=== PATIENT | male | born 1985 | race African-American/Black ===

== ENCOUNTER 2021-02-09 01:15 | Emergency (ER) | payer OTHER ==
[~2021-02-09] VITALS: Ht 188 cm; Wt 132.4 kg
[2021-02-09 01:22] VITALS: BP 204/109
== END 2021-02-09 03:53 | disposition home or self-care (01) ==
LOC: ER 01:17
DX: R07.89 Other chest pain (principal); I10 Essential (primary) hypertension; Z88.8 Allergy status to other drugs, medicaments and biological substances
CPT/HCPCS: 93005

== ENCOUNTER 2023-05-19 20:20 | Emergency (ER) | payer OTHER ==
[~2023-05-19] VITALS: Ht 188 cm; Wt 129.0 kg
[2023-05-19 20:20] VITALS: BP 174/125; RESP 20; O2SAT 100
[2023-05-19] MEDS ORDERED: LISINOPRIL 20 MG TAB PO ONE (22:45)
[2023-05-19 23:24] VITALS: PULSE 96
[2023-05-19] MEDS ORDERED: LISI20TA56 PO (23:37)
== END 2023-05-20 03:21 | disposition left against medical advice (07) ==
LOC: ER 20:20
DX: I10 Essential (primary) hypertension (principal); F41.9 Anxiety disorder, unspecified; Z88.8 Allergy status to other drugs, medicaments and biological substances
CPT/HCPCS: 93005

== ENCOUNTER 2024-08-11 13:19 | Inpatient (IN) | payer MEDICAID, OTHER ==
[~2024-08-11] VITALS: Ht 188 cm; Wt 115.0 kg
[~2024-08-11 13:19] MED LIST: IBU600T PO; LISI20TA56 PO
[2024-08-11] MEDS: ASPirin 81 mg TAB PO ONE (13:45)
--- NOTE | 2024-08-11 13:58 | DVH ---
EXAM: XY CHEST TWO VIEWS ROUTINE HISTORY: CP COMPARISON: None TECHNIQUE: Frontal and lateral views of the chest were performed. FINDINGS: No pneumothorax, pulmonary edema, pleural effusions, or consolidative infiltrates. The heart is not enlarged. No fractures are identified about the bony thorax. IMPRESSION: No acute intrathoracic process.
[2024-08-11 14:00] LABS: Basophils # (auto) 0.1 10 ^3/uL (0-0.2); Basophils % (auto) 1.3 % (0.0-2.0); Eosinophils # (auto) 0.2 10 ^3/uL (0-0.8); Eosinophils % (auto) 3.4 % (0.0-7.0); Hemoglobin 15.3 g/dL (13.5-17.5); Lymphocytes # (auto) 1.8 10 ^3/uL (0.4-5.4); Lymphocytes % (auto) 35.4 % (10.0-50.0); Mean Corpuscular Hgb Conc. 33.3 g/dL (32.0-36.0); Mean Corpuscular Volume 90.1 fL (80.0-100.0); Monocytes # (auto) 0.3 10 ^3/uL (0-1.3); Monocytes % (auto) 6.6 % (0.0-12.0); Neutrophils # (auto) 2.8 10 ^3/uL (1.6-8.6); Neutrophils % (auto) 53.3 % (37.0-80.0); Platelet Count (auto) 245 10^3/uL (140-450); Red Cell Distribution Width 13.1 % (11.8-14.3); White Blood Cell 5.2 10^3/uL (4.4-10.8)
--- NOTE | 2024-08-11 15:49 | ED.PDOC ---
History of Present Illness HPI Comments 38-year-old male with PMHx HTN, GERD presents with a chief complaint of chest pain x 3 weeks with associated SOB and nausea. Patient states that his pain is localized to his left chest, nonradiating, describes as sharp, and goes to a squeezing sensation. Patient rates his pain a 10/10 at this time. Patient m entions that the pain is made worse after eating. Chief Complaint: Chest Pain Time Seen by MD: 15:43 Primary Care Provider: ESTEPHANIA Reviewed Notes: Nurses Notes, Medications, Allergies Allergies: Coded Allergies: Phenytoin (Verified Allergy, Unknown, 02/09/21) Home Meds Active Scripts Ibuprofen Micronized (MOTRIN TABLET) 600 Mg Tb, 600 MG PO TID PRN for 3 Days, #9 TAB *Black box warning-NSAIDS can increase risk of UT & hypertension, GI irritation, ulceration, bleed, perferation. Do not use post cardiac surgery. Use short duration/lowest effective dose. Prov:DAYTON CASE MD 07/26/23 Lisinopril (Lisinopril) 20 Mg Tab, 1 TAB PO DAILY, #30 TAB 5 Refills Prov:DANIS SARMIENTO DO 05/19/23 Information Source: Patient Mode of Arrival: Ambulatory Severity: Moderate Timing: Weeks Duration: Since onset Prehospital treatment: None Associated signs and symptoms Chest pain and shortness a breath Past Medical History PAST MEDICAL HISTORY: Anxiety, HTN, Seizures Surgical History: Denies all surgeries Family History Family History: Unknown Social History Smoker: Non-Smoker Alcohol: Denies ETOH Use Drugs: Denies Drug Use Lives In: Home Constitutional: denies: chills, diaphoresis, fatigue, fever, malaise, sweats, weakness, others EENTM: denies: blurred vision, double vision, ear bleeding, ear discharge, ear drainage, ear pain, ear ringing, eye pain, eye redness, hearing loss, mouth pain, mouth swelling, nasal discharge, nose bleeding, nose congestion, nose pain, photophobia, tearing, throat pain, throat swelling, voice changes, others Respiratory: reports: shortness of breath; denies: cough, hemoptysis, orthopnea, SOB at rest, SOB with excertion, stridor, wheezing, others Cardiovascular: reports: chest pain; denies: dizzy spells, diaphoresis, Dyspnea on exertion, edema, irregular heart beat, left arm pain, lightheadedness, palpitations, PND, syncope, others Gastrointestinal: reports: nausea; denies: abdomen distended, abdominal pain, blood streaked bowels, constipated, diarrhea, dysphagia, difficulty swallowing, hematemesis, melena, poor appetite, poor fluid intake, rectal bleeding, rectal pain, vomiting, others Genitourinary: denies: burning, dysuria, flank pain, frequency, hematuria, incontinence, penile discharge, penile sore, pain, testicle pain, testicle swelling, urgency, others Neurological: denies: dizziness, fainting, headache, left sided numbness, left sided weakness, numbness, paresthesia, pre-existing deficit, right sided n umbness, right sided weakness, seizure, speech problems, tingling, tremors, weakness, others Musculoskeletal: denies: back pain, gout, joint pain, joint swelling, muscle pain, muscle stiffness, neck pain, others Integumetry: denies: bruises, change in color, change in hair/nails, dryness, laceration, lesions, lumps, rash, wounds, others Allergic/Immunocompromised: denies: Difficulty Healing, Frequent Infections, Hives, Itching, others Hematologic/Lymphatic: denies: anemia, blood clots, easy bleeding, easy bruising, swollen glands, others Endocrine: denies: excessive hunger, excessive sweating, excessive thirst, excessive urination, flushing, intolerance to cold, intolerance to heat, unexplained weight gain, unexplained weight loss, others Psychiatric: denies: anxiety, bipolar disorder, depression, hopeless, panic disorder, schizophrenia, sleepless, suicidal, others All Other Systems: Reviewed and Negative Physical Exam General Appearance: Moderate Distress HEENT: Normal ENT Inspection, Pharynx Normal, TMs Normal Neck: Full Range of Motion, Non-Tender, Normal, Normal Inspection Respiratory: Chest Non-Tender, Lungs Clear, No Accessory Muscle Use, No Respiratory Distress, Normal Breath Sounds Cardiovascular: No Edema, No JVD, No Murmur, No Gallop, Normal Peripheral Pulses, Regular Rate/Rhythm Breast Exam: Deferred Gastrointestinal: No Organomegaly, Non Tender, No Pulsatile Mass, Normal Bowel Sounds, Soft Genitalia: Deferred Pelvic: Deferred Rectal: Deferred Extremities: No calf tenderness, Normal capillary refill, Normal inspection, Normal range of motion, Non-tender, No pedal edema Musculoskeletal : Apperance: Normal Neurologic: Alert, supervisor paper coating II-XII nml as Tested, No Motor Deficits, Normal Affect, Normal Mood, No Sensory Deficits Cerebellar Function: Normal Reflexes: Normal Skin: Dry, Normal Color, Warm Lymphatic: No Adenopathy Was a procedure done? Was a procedure done?: No EKG EKG : Pulse Rate (adult): 83 [place]: Normal Cardiac Rhythm: NSR Block: None ST: Nonsp Differential Dx Considerations may include: ACS, UT, pneumothorax, PE X-Ray, Labs, Meds, VS Vital Signs Date Time Temp Pulse Resp B/P (MAP) Pulse Ox O2 Delivery O2 Flow Rate FiO2 08/11/24 15:17 90 16 98 Room Air 08/11/24 15:17 98.4 90 16 151/96 (114) 98 98.4 08/11/24 14:21 86 08/11/24 13:29 98.4 85 18 152/99 (116) 99 98.4 08/11/24 13:25 83 Lab Test 08/11/24 14:35 08/11/24 13:37 Range/Units Troponin I High Sensitivity 4 3 L </=54 ng/L White Blood Count 5.2 4.4-10.8 10^3/uL Red Blood Count 5.10 4.5-5.90 10^6/uL Hemoglobin 15.3 13.5-17.5 g/dL Hematocrit 46.0 41.0-53.0 % Mean Corpuscular Volume 90.1 80.0-100.0 fL Mean Corpuscular Hemoglobin 30.0 28.0-32.0 pg Mean Corpuscular Hemoglobin Concent 33.3 32.0-36.0 g/dL Red Cell Distribution Width 13.1 11.8-14.3 % Platelet Count 245 140-450 10^3/uL Mean Platelet Volume 8.3 6.9-10.8 fL Neutrophils (%) (Auto) 53.3 37.0-80.0 % Lymphocytes (%) (Auto) 35.4 10.0-50.0 % Monocytes (%) (Auto) 6.6 0.0-12.0 % Eosinophils (%) (Auto) 3.4 0.0-7.0 % Basophils (%) (Auto) 1.3 0.0-2.0 % Neutrophils # (Auto) 2.8 1.6-8.6 10 ^3/uL Lymphocytes # (Auto) 1.8 0.4-5.4 10 ^3/uL Monocytes # (Auto) 0.3 0-1.3 10 ^3/uL Eosinophils # (Auto) 0.2 0-0.8 10 ^3/uL Basophils # (Auto) 0.1 0-0.2 10 ^3/uL Nucleated Red Blood Cells 0.0 % B-Type Natriuretic Peptide 10.72 0-100 pg/mL Current Medications Medications (Trade) Dose Ordered Sig/Williams Route Start Time Stop Time Status Last Admin Aspirin 162 mg ONCE ONCE PO 08/11/24 13:45 08/11/24 13:46 DC 08/11/24 13:45 The patient was given aspirin here in the emergency department's. The patient had an IV Hep-Lock established The CBC is within normal limits The BNP is 10.72 The chemistry panel is pending The troponin level is negative At this time, the chest x-ray shows: No sign of any abnormalities The patient is being admitted The patient understands and agrees with the management Images Reviewed?: Images reviewed and evaluated by me Time of 1ST Reevaluation: 16:13 Reevaluation 1ST: Unchanged Patient Education/Counseling: Diagnosis, Treatment, Prognosis Family Education/Counseling: No Family Present Departure 1 Departure Time of Disposition: 16:06 Impression: Primary Impression: Acute coronary syndrome Disposition: ADMITTED INPATIENT Admit to: [facility] Condition: Fair Critical Care Note Critical Care Time?: Yes (45 min-critical care time only) Stability Stability form required: Yes Unstable for transfer: Telemetry monitoring (Telemetry monitoring required), ED Physician Assesment (Clinical assesment) Heart Score Heart Score: Heart Score Response (Comments) Value History Moderate Suspicious 1 EKG Repolarization Disturb 1 Age <45 0 Risk Factors 1 or 2 risk factors 1 Troponin Normal limit 0 Total 3 I personally scribed for TEAGAN OCHOA MD ([email or web address]) on 08/11/24 at 15:49. Electronically submitted by Daren Pleitez [email or web address]). TEAGAN OCHOA MD Aug 11, 2024 15:49
[2024-08-11 16:43] LABS: Chloride 105 mmol/L (98-107); Potassium 3.9 mmol/L (3.5-5.1); Sodium 141 mmol/L (136-145)
[2024-08-11 16:44] LABS: Anion Gap 12 (5-15); Carbon Dioxide 24 mmol/L (20-31)
[2024-08-11 16:49] LABS: BUN/Creatinine Ratio 7.9 (10.0-20.0); Glucose 94 mg/dL (74-106)
[2024-08-11 16:53] LABS: Blood Urea Nitrogen 9 mg/dL (9-23)
--- NOTE | 2024-08-11 20:33 | ECG ---
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
[2024-08-12] MEDS ORDERED: HYDROcodone-ACET 5/325MG TAB PO PRN (00:15)
[2024-08-12] MEDS: LISINOPRIL 5 MG TAB PO ONE (00:15)
[2024-08-12] MEDS ORDERED: ACETAMINOPHEN 325 MG TAB PO PRN (00:15)
[2024-08-12] MEDS ORDERED: MORPHINE SULFATE INJ 2 MG/ml SYRG IV PRN (00:15)
[2024-08-12 03:02] VITALS: BP 141/90; PULSE 70; PULSE 76; RESP 17; RESP 18; TEMP 98.1; O2SAT 96; O2SAT 97
--- NOTE | 2024-08-12 03:17 | DVHHPRES ---
History of Present Illness Resident Creating Document: TIFFANY AGUILAR RESIDENT History of Present Illness Patient is a 38-year-old male with a past medical history of hypertension, asthma presented to the ED with a chief complaint of chest pain. Patient reported the chest pain started about 3 weeks ago with the left side of the sternum, intermittent, occurred at rest and worsened when he works out, intermittent radiation to the left arm associated with palpitations and the patient feels like he could not breathe. Today the chest pain got worse following which he came to the hospital for further evaluation. Patient also reports that the pain gets worse when he eats and in the last week he has had sensation of food getting stuck in the chest especially when he eats meat. Patient also reported of headache on and off. Denied any orthopnea, leg swelling in the last 3 weeks. Patient reports that previously had [employer] insurance and in June of 2023 underwent echocardiogram which showed his EF was 50-55%. Past medical history: Hypertension, asthma Past surgical history: None Social history: Patient denies smoking, alcohol, drug use Family history: Grandmother at the age of 40-45 because of [place] Home medications: According with the patient's spironolactone 25 mg daily, hydralazine 50 mg thrice daily Review of Systems Review of Systems Patient seen and examined at the bedside Reports of chest pain 7 to 8/10 on the left side of the sternum, nonradiating Denies nausea, vomiting, abdominal pain Allergies: Coded Allergies: Penicillins (Verified Allergy, Severe, 08/12/24) Amlodipine (Verified Allergy, Unknown, 08/12/24) Clonidine (Verified Allergy, Unknown, 08/12/24) Phenytoin (Verified Allergy, Unknown, 02/09/21) Lisinopril (Verified Adverse Reaction, Unknown, Lips swelling, 08/12/24) Medications Current Medications Medications Dose Ordered Sig/Williams Route Start Time Stop Time Status Last Admin Dose Admin Nitroglycerin 0.4 mg Q5MINP PRN SL 08/12/24 00:15 Morphine Sulfate 2 mg Q30M PRN IV 08/12/24 00:15 Lisinopril 10 mg DAILY PO 08/12/24 10:00 Pantoprazole Sodium 40 mg DAILY@0600 PO 08/12/24 06:00 Sucralfate 1 gm BID@0600,2200 PO 08/12/24 06:00 Acetaminophen 650 mg Q6HP PRN PO 08/12/24 00:15 Acetaminophen/ Hydrocodone Bitart 1 tab Q6HPRN PRN PO 08/12/24 00:15 Exam Vital Signs Vital Signs Date Time Temp Pulse Resp B/P (MAP) Pulse Ox O2 Delivery O2 Flow Rate FiO2 08/11/24 21:59 98.5 102 14 157/91 (113) 98 98.5 08/11/24 15:17 Room Air Exam Gen - no pallor, no icterus, no cyanosis, no clubbing, no LAD, no edema . Skin - Patients skin is warm and dry. HEENT - normocephalic, atraumatic, moist mucous membranes. Neck - full ROM, no LAD, no JVD Pulmonary - B/L equal breath sounds, no crackles, no wheezing, no stridor. cardiovascular - regular S1,S2 heard, no added sounds, no murmurs heard. peripheral pulses normal radial 2+, pedal 2+. GI - soft, nontender abdomen. no hepatospleenomegaly. Bowel sounds normoactive Neurological - Patient is A/O X 3 . Bilateral upper extremity strength 5/5, bilateral lower extremity strength 5/5, no facial droop, normal speech, no tremor, no sensory deficiets. Labs/Xrays Labs Test 08/11/24 14:35 08/11/24 13:37 Range/Units Troponin I High Sensitivity 4 </=54 ng/L White Blood Count 5.2 4.4-10.8 10^3/uL Red Blood Count 5.10 4.5-5.90 10^6/uL Hemoglobin 15.3 13.5-17.5 g/dL Hematocrit 46.0 41.0-53.0 % Mean Corpuscular Volume 90.1 80.0-100.0 fL Mean Corpuscular Hemoglobin 30.0 28.0-32.0 pg Mean Corpuscular Hemoglobin Concent 33.3 32.0-36.0 g/dL Red Cell Distribution Width 13.1 11.8-14.3 % Platelet Count 245 140-450 10^3/uL Mean Platelet Volume 8.3 6.9-10.8 fL Neutrophils (%) (Auto) 53.3 37.0-80.0 % Lymphocytes (%) (Auto) 35.4 10.0-50.0 % Monocytes (%) (Auto) 6.6 0.0-12.0 % Eosinophils (%) (Auto) 3.4 0.0-7.0 % Basophils (%) (Auto) 1.3 0.0-2.0 % Neutrophils # (Auto) 2.8 1.6-8.6 10 ^3/uL Lymphocytes # (Auto) 1.8 0.4-5.4 10 ^3/uL Monocytes # (Auto) 0.3 0-1.3 10 ^3/uL Eosinophils # (Auto) 0.2 0-0.8 10 ^3/uL Basophils # (Auto) 0.1 0-0.2 10 ^3/uL Nucleated Red Blood Cells 0.0 % Sodium Level 141 136-145 mmol/L Potassium Level 3.9 3.5-5.1 mmol/L Chloride Level 105 98-107 mmol/L Carbon Dioxide Level 24 20-31 mmol/L Anion Gap 12 5-15 Blood Urea Nitrogen 9 9-23 mg/dL Creatinine 1.14 0.700-1.30 mg/dL Glomerular Filtration Rate Calc 84 >90 mL/min BUN/Creatinine Ratio 7.9 L 10.0-20.0 Serum Glucose 94 74-106 mg/dL Calcium Level 9.0 8.7-10.4 mg/dL B-Type Natriuretic Peptide 10.72 0-100 pg/mL Assessment/Plan Assessment/Plan Acute chest pain, rule out ACS Possible GERD Possible musculoskeletal chest pain Hypertensive heart disease - ECG showed sinus rhythm with a normal axis, no acute ST or T-wave changes - echocardiogram pending - Protonix and Carafate - pain management Goals of care discussed with the patient for over 23 minutes. Full code Time spent: 37 minutes Plan discussed with Dr. Diego Plan discussed with: Patient My Orders Orders - TIFFANY AGUILAR RESIDENT Procedure Category Date Status Time Admit ADMIT 08/12/24 Transmitted 00:04 Nitroglycerin PHA 08/12/24 In Process Sublingual (Ntrostat 00:15 Morphine Sulfate PHA 08/12/24 In Process Injection 00:15 Oxygen By Nasal RT 08/12/24 Transmitted Cannula 00:04 Stat Ekg For Chest JOSE 08/12/24 In Process Pain 00:04 Notify Of Changes JOSE 08/12/24 In Process From Base 00:04 Tire Sorter For JOSE 08/12/24 In Process 24 Hours 00:04 Emergency Dysrhythmia [facility] 08/12/24 In Process Protocol 00:04 Rhythm Strips Once [facility] 08/12/24 In Process Every Shift 00:04 Lisinopril Tablet [facility] 08/12/24 In Process (Zestril Tablet) 10:00 Echo 2d Mode Cardiac US 08/12/24 Logged DOP 00:04 Pantoprazole Tablet [facility] 08/12/24 In Process (Protonix Tablet) 06:00 Sucralfate Susp PHA 08/12/24 In Process (Carafate Susp) 06:00 Acetaminophen Tablet PHA 08/12/24 In Process (Tylenol Tablet) 00:15 Hydrocodone-Acet PHA 08/12/24 In Process 5/325mg Tab ([place] 00:15 Date of Service: Aug 12, 2024 Billing Provider: BENITO DIEGO MD Common Visit Codes: 23528-UMFRURW INP/OBS CARE (HIGH) Secondary Visit Codes: 98386-JIMJOGGA CARE PLAN 30 MINUTES TIFFANY AGUILAR RESIDENT Aug 12, 2024 03:17
[2024-08-12] MEDS: PANTOPRAZOLE 40 MG/10 ML VIAL INJ IV ONE (03:21)
[2024-08-12] MEDS ORDERED: BUDE1AER15 IN (03:35)
[2024-08-12] MEDS ORDERED: FAMO-12 PO (03:35)
[2024-08-12] MEDS ORDERED: OMEP20TA PO (03:35)
[2024-08-12] MEDS ORDERED: SPIR25TA8 PO (03:35)
[2024-08-12] MEDS ORDERED: HYDR25TA88 PO (03:35)
--- NOTE | 2024-08-12 03:56 | ECG ---
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
[2024-08-12] MEDS: NITROGLYCERIN 0.4 MG SL TAB SL PRN (04:11)
[2024-08-12] MEDS ORDERED: MORPHINE SULFATE 4 MG/ML SYR/VIAL IV PRN ×2 (04:15)
[2024-08-12 04:47] LABS: Urine Bacteria FEW /hpf (None Seen); Urine Blood Negative /uL (Negative); Urine Clarity Turbid (Clear); Urine Color Yellow (Yellow); Urine Hyaline Cast FEW /lpf (0 - 2); Urine Mucus FEW (None Seen); Urine Protein, UAD TRACE (Negative); Urine Specific Gravity 1.025 (1.001-1.035); Urine Squamous Epithelial Cell FEW /hpf (<5); Urine Urobilinogen Normal (Negative); Urine WBC 5 /HPF (0-3)
[2024-08-12 04:58] LABS: Amphetamine Screen, Urine Neg (NEGATIVE); Barbiturate Scree,Urine Neg (NEGATIVE); Benzodiazephine Screen, Urine Neg (NEGATIVE); Cannabinoid Screen, Urine Neg (NEGATIVE); Cocaine Screen, Urine Neg (NEGATIVE); Opiate Scree,Urine Neg (NEGATIVE); Phencyclidine Screen, Urine Neg (NEGATIVE)
[2024-08-12 05:00] VITALS: BP 138/88; PULSE 65; RESP 18; TEMP 98; O2SAT 99
[2024-08-12] MEDS: PANTOPRAZOLE 40 MG TAB PO SCH (06:24)
[2024-08-12] MEDS: SUCRALFATE 1 GM/10 ML ORAL SUSP PO SCH (06:25)
[2024-08-12 07:39] LABS: Alanine Aminotransferase 23 U/L (7-40); Albumin 4.2 g/dL (3.2-4.8); Alkaline Phosphatase 50 U/L (46-116); Anion Gap 10 (5-15); Aspartate Aminotransferase 19 U/L (<34); Calcium 9.6 mg/dL (8.7-10.4); Carbon Dioxide 28 mmol/L (20-31); Glucose 85 mg/dL (74-106); LDL Cholesterol 61 mg/dL (< 100); Potassium 3.9 mmol/L (3.5-5.1); Sodium 145 mmol/L (136-145); Total Protein 6.8 g/dL (5.7-8.2); Triglycerides 73 mg/dL (< 150)
[2024-08-12 07:40] LABS: Cholesterol 111 mg/dL (< 200)
[2024-08-12 07:42] LABS: Bilirubin, Total 1.4 mg/dL (0.2-1.0); Chloride 107 mmol/L (98-107); HDL Cholesterol 33 mg/dL (40-59)
[2024-08-12 08:00] VITALS: PULSE 68
[2024-08-12 09:00] VITALS: BP 122/85; PULSE 67; RESP 18; TEMP 97.8; O2SAT 97
[2024-08-12 09:10] LABS: BUN/Creatinine Ratio 10.4 (10.0-20.0); Blood Urea Nitrogen 14 mg/dL (9-23)
[2024-08-12] MEDS: SPIRONOLACTONE 25 MG TAB PO SCH (09:50)
[2024-08-12] MEDS ORDERED: LISINOPRIL 5 MG TAB PO SCH (10:00)
[2024-08-12] MEDS ORDERED: PANT40T PO (10:58)
[2024-08-12] MEDS ORDERED: ACET-1079 PO (10:58)
[2024-08-12] MEDS ORDERED: CALC600C PO (10:58)
[2024-08-12 13:00] VITALS: BP 102/49; PULSE 90; RESP 18; TEMP 97.9; O2SAT 98
--- NOTE | 2024-08-12 13:10 | DVHDSRES ---
Discharge Summary Date of Admission Resident Creating Document: CLARISA BERNARD RESIDENT Aug 12, 2024 at 00:04 Date of Discharge: Aug 12, 2024 Admitting Diagnosis chest pain Labs/Diagnostic Data: Laboratory Results Test 08/12/24 05:06 08/12/24 00:00 08/11/24 14:35 08/11/24 13:37 Sodium Level 145 mmol/L (136-145) Potassium Level 3.9 mmol/L (3.5-5.1) Chloride Level 107 mmol/L (98-107) Carbon Dioxide Level 28 mmol/L (20-31) Anion Gap 10 (5-15) Blood Urea Nitrogen 14 mg/dL (9-23) Creatinine 1.35 mg/dL (0.700-1.30) Glomerular Filtration Rate Calc 68 mL/min (>90) BUN/Creatinine Ratio 10.4 (10.0-20.0) Serum Glucose 85 mg/dL (74-106) Calcium Level 9.6 mg/dL (8.7-10.4) Total Bilirubin 1.4 mg/dL (0.2-1.0) Aspartate Amino Transferase (AST) 19 U/L (<34) Alanine Aminotransferase (ALT) 23 U/L (7-40) Alkaline Phosphatase 50 U/L (46-116) Total Protein 6.8 g/dL (5.7-8.2) Albumin 4.2 g/dL (3.2-4.8) Triglycerides Level 73 mg/dL (< 150) Cholesterol Level 111 mg/dL (< 200) LDL Cholesterol 61 mg/dL (< 100) HDL Cholesterol 33 mg/dL (40-59) Urine Color Yellow (Yellow) Urine Clarity Turbid (Clear) Urine pH 6.0 (5.0-9.0) Urine Specific [place] 1.025 (1.001-1.035) Urine Protein Trace (Negative) Urine Ketones 1+ (Negative) Urine Blood Negative /uL (Negative) Urine Nitrite Negative (Negative) Urine Bilirubin Negative (Negative) Urine Urobilinogen Normal mg/dL (Negative) Urine Leukocyte Esterase Trace /uL (Negative) Urine RBC 31 /hpf (0 - 3) Urine Microscopic WBC 5 /HPF (0-3) Urine Squamous Epithelial Cells Few /hpf (<5) Urine Bacteria Few /hpf (None Seen) Urine Hyaline Casts Few /lpf (0 - 2) Urine Mucus Few (None Seen) Urine Glucose Normal mg/dL (Normal) Urine Opiates Screen Neg (NEGATIVE) Urine Fentanyl Screen Neg (NEGATIVE) Urine Barbiturates Screen Neg (NEGATIVE) Urine Phencyclidine Screen Neg (NEGATIVE) Urine Amphetamines Screen Neg (NEGATIVE) Urine Benzodiazepines Screen Neg (NEGATIVE) Urine Cocaine Screen Neg (NEGATIVE) Urine Cannabinoids Screen Neg (NEGATIVE) Troponin I High Sensitivity 4 ng/L (</=54) White Blood Count 5.2 10^3/uL (4.4-10.8) Red Blood Count 5.10 10^6/uL (4.5-5.90) Hemoglobin 15.3 g/dL (13.5-17.5) Hematocrit 46.0 % (41.0-53.0) Mean Corpuscular Volume 90.1 fL (80.0-100.0) Mean Corpuscular Hemoglobin 30.0 pg (28.0-32.0) Mean Corpuscular Hemoglobin Concent 33.3 g/dL (32.0-36.0) Red Cell Distribution Width 13.1 % (11.8-14.3) Platelet Count 245 10^3/uL (140-450) Mean Platelet Volume 8.3 fL (6.9-10.8) Neutrophils (%) (Auto) 53.3 % (37.0-80.0) Lymphocytes (%) (Auto) 35.4 % (10.0-50.0) Monocytes (%) (Auto) 6.6 % (0.0-12.0) Eosinophils (%) (Auto) 3.4 % (0.0-7.0) Basophils (%) (Auto) 1.3 % (0.0-2.0) Neutrophils # (Auto) 2.8 10 ^3/uL (1.6-8.6) Lymphocytes # (Auto) 1.8 10 ^3/uL (0.4-5.4) Monocytes # (Auto) 0.3 10 ^3/uL (0-1.3) Eosinophils # (Auto) 0.2 10 ^3/uL (0-0.8) Basophils # (Auto) 0.1 10 ^3/uL (0-0.2) Nucleated Red Blood Cells 0.0 % B-Type Natriuretic Peptide 10.72 pg/mL (0-100) Other Laboratory Tests 08/12/24 05:06 08/11/24 13:37 Brief Hx & Hospital Course: A 38-year-old male with a past medical history of hypertension and asthma presented to the ED with intermittent, chest pain localized to the left side of the sternum with radiation and associated dyspnea. He endorsed worsening pain over the past three weeks, particularly with food intake. He also reported recent onset of headaches and denied orthopnea or leg swelling. Patient was able to do exercise w/o pain On admission, ECG showed sinus rhythm with normal axis and no acute ST or T-wave changes. A transthoracic echocardiogram was ordered, preliminary w/o abnormalities. Differential diagnosis gastroesophageal reflux disease (GERD), and musculoskeletal chest pain. Pain management was optimized. Allergies included severe reaction to penicillin, and reactions to amlodipine, clonidine, phenytoin, and lisinopril. Discharge Condition: Patient was stable at discharge. Chest pain had improved. Patient remained hemodynamically stable with no evidence of acute coronary syndrome. Pending echocardiogram results to be followed outpatient. Discharge Diagnosis: Chest pain, likely multifactorial (rule out ACS vs GERD vs musculoskeletal) Case discussed with Dr Castano Operations or Procedures EXAM: XY CHEST TWO VIEWS ROUTINE HISTORY: CP COMPARISON: None TECHNIQUE: Frontal and lateral views of the chest were performed. FINDINGS: No pneumothorax, pulmonary edema, pleural effusions, or consolidative infiltrates. The heart is not enlarged. No fractures are identified about the bony thorax. IMPRESSION: No acute intrathoracic process. Condition at Discharge: Stable Final Diagnosis/Problems List Acute chest pain, ruled out ACS Possible GERD Possible musculoskeletal chest pain Hypertensive heart disease Discharge Disposition: Home Discharge Statement: "Patient was advised to return to the ER or call 911 if any headaches, dizziness, shortness of breath, chest pain, abdominal pain, bleeding, fevers, or worsening of medical condition. Patient was counseled about treatment plan, medications, possible side effects, patientverbalized understanding. All questions were answered to the best of my ability. This discharge took greater then 30 minutes in planning, reviewing documentation, counseling the patient, and discussing with other team members." ASSESSMENT ASSESSMENT Assessment Date of Service: Aug 12, 2024 Billing Provider: SAHARA CASTANO MD Common Visit Codes: 98833-HNJ/OBS DISCH DAY >30min CLARISA BERNARD RESIDENT Aug 12, 2024 13:10 SAHARA CASTANO MD Aug 16, 2024 21:08
[2024-08-12] MEDS: hydrALAZINE HCL 25 MG TAB PO SCH (13:46)
[2024-08-12 17:00] VITALS: BP_SYST 137; BP_SYST 150; BP_DIAS 72; BP_DIAS 93; PULSE 63; PULSE 74; RESP 18; RESP 19; TEMP 97.2; TEMP 98.9; O2SAT 98
--- NOTE | 2024-08-13 17:16 | DVHSR ---
APPROVED REPORT EXAM: Two-dimensional and M-mode echocardiogram with Doppler and color Doppler. Blood Pressure: 133/75 mmHg INDICATION Chest Pain RISK FACTORS Obesity: Height: 6'2, Weight: 253 DIMENSIONS LVDd4.8 (3.8-5.7cm)LA (2D)3.3 (1.9-4.0cm)Aortic Root3.6 (2.0-3.7cm) LVDs3.8 (2.5-4.0cm)LA (MM) (1.9-4.0cm)Aortic Cusp Exc1.6 (1.5-2.0cm) EF (%) 50.0 (55-70%)Rt. Atrium3.1 (1.9-4.0cm)Asc. Aorta cm IVSd0.8 (0.7-1.1cm)RV (D)4.5 (1.8-2.4cm) PWd1.1 (0.7-1.1cm) Mitral Valve MitralMitral Stenosis E wave0.64m/sMV Mean GR.mmHg A wave0.89m/sMV Peak GR.86mmHg E/A ratio0.72D MVAcm2 DECEL [id number] 1/2 [place] Aortic Valve Aortic ValveAortic Stenosis V10.92m/Diana Mean GR.3mmHg V21.16m/Diana Peak GR.5mmHg LVOT Diameter2.1 (1.8-2.4cm)Doppler AVA2.75cm2 Pulmonic Valve V21.00m/s Tricuspid Valve TR Velocity2.14m/s [id number] Conclusion Technically good study. Sinus rhythm. Mild concentric LVH with aortic root enlargement. Valves are normal. EF is 50%. Normal RV function.. Doppler is unremarkable. No pericardial effusion masses or vegetations.
--- NOTE | 2024-08-14 09:48 | ECG ---
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
--- NOTE | 2024-08-15 13:07 | ECG ---
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
== END 2024-08-12 18:55 | disposition home or self-care (01) | DRG 313 ==
LOC: ER 13:25 → OVERFLOW 08-12 00:04 → TELE-WESTW 08-12 00:09 → WEST WING 08-12 09:44
PROVIDERS: ADMIT Student in an Organized Health Care Education/Training Program; ATTEND Emergency Medicine
DX: R07.89 Other chest pain (principal); F41.9 Anxiety disorder, unspecified; R56.9 Unspecified convulsions; J45.909 Unspecified asthma, uncomplicated; K21.9 Gastro-esophageal reflux disease without esophagitis; I10 Essential (primary) hypertension; Z79.899 Other long term (current) drug therapy; Z88.8 Allergy status to other drugs, medicaments and biological substances; Z79.1 Long term (current) use of non-steroidal anti-inflammatories (NSAID)
CPT/HCPCS: 36415; 71046; 80048; 80053; 80061; 80307; 81001; 83880; 84484; 85025; 93005; 93306; 96374; 99291; G0378; J2470

== ENCOUNTER 2024-09-09 17:33 | Inpatient (IN) | payer SELFPAY ==
[~2024-09-09] VITALS: Ht 188 cm; Wt 113.5 kg
[~2024-09-09 17:33] MED LIST changes: +ACET-1079 PO; +BUDE1AER15 IN; +CALC600C PO; +FAMO-12 PO; +HYDR25TA88 PO; -IBU600T PO; +PANT40T PO; +SPIR25TA8 PO
--- NOTE | 2024-09-09 18:57 | DVH ---
CHEST RADIOGRAPH Indication: cp Technique: Single frontal view of the chest was obtained Comparison: XY CHEST PORTABLE on DOS: 07/26/23 FINDINGS: Lines and Tubes: None Lungs: No focal consolidation. Pleura: No effusion. No pneumothorax. Cardiomediastinal contours: Unremarkable Bones: No acute osseous abnormality. IMPRESSION: 1. No acute cardiopulmonary disease.
[2024-09-09 19:09] LABS: Chloride 105 mmol/L (98-107); Potassium 4.2 mmol/L (3.5-5.1)
[2024-09-09 19:10] LABS: Carbon Dioxide 28 mmol/L (20-31)
[2024-09-09 19:11] LABS: Calcium 9.7 mg/dL (8.7-10.4)
[2024-09-09 19:16] LABS: BUN/Creatinine Ratio 10.8 (10.0-20.0); Blood Urea Nitrogen 15 mg/dL (9-23)
[2024-09-09 19:17] LABS: Hematocrit 46.4 % (41.0-53.0); Hemoglobin 15.5 g/dL (13.5-17.5); Mean Corpuscular Hemoglobin 30.3 pg (28.0-32.0); Mean Corpuscular Volume 90.7 fL (80.0-100.0); Nucleated Red Blood Cells % 0.1 %
[2024-09-09 19:18] LABS: Glucose 115 mg/dL (74-106)
[2024-09-09 19:32] LABS: Anion Gap 8 (5-15); Sodium 141 mmol/L (136-145)
--- NOTE | 2024-09-09 19:35 | ED.PDOC ---
HPI Comments 38 year old male came to ER due to near syncope, shortness of breath and chest pain. Patient has history of hypertension, asthma and CHF. States he was walking up his driveway earlier when he started feeling very short of breath, which caused him to feel dizzy and collapse. Subsequently he developed stabbing retrosternal chest pain. Denies any head trauma, injury or loss of consciousness. States he has been having retrosternal and left sided chest pain, sharp, stabbing, non radiating for the past 3 days, with episodes of shortness of breath, nausea and vomiting. He denies any chest pain currently. Blood sugar on scene was 126, saturating at 97% on room air with a blood pressure of 110/47 mmHg Chief Complaint: Chest Pain Time Seen by MD: 19:34 Primary Care Provider: UNKNOWN Reviewed Notes: Vice President Payment Notes Allergies: Coded Allergies: Penicillins (Verified Allergy, Severe, 08/12/24) Amlodipine (Verified Allergy, Unknown, 08/12/24) Clonidine (Verified Allergy, Unknown, 08/12/24) Phenytoin (Verified Allergy, Unknown, 02/09/21) Lisinopril (Verified Adverse Reaction, Unknown, Lips swelling, 08/12/24) Home Meds Active Scripts Calcium Carbonate (Antacid) (Maalox) 600 Mg Chw, 600 MG PO TID for 10 Days, #20 TAB.CHEW Prov:CLARISA BERNARD RESIDENT 08/12/24 Pantoprazole Sodium Sesquihydr (Pantoprazole Sodium) 40 Mg Tab, 40 MG PO DAILY for 30 Days, #30 TAB Prov:CLARISA BERNARD 08/12/24 Acetaminophen (Tylenol) 325 Mg Tb, 325 MG PO TID for 10 Days, #30 TAB Prov:CLARISA BERNARD RESIDENT 08/12/24 Lisinopril (Lisinopril) 20 Mg Tab, 1 TAB PO DAILY, #30 TAB 5 Refills Prov:DANIS SARMIENTO DO 05/19/23 Reported Medications Budesonide-Formoterol Fumarate (Breyna 80-4.5 Mcg/Act) 1 Aer Aer, 1 AER IN, AER 08/12/24 Hydralazine Hcl (Hydralazine Hcl) 25 Mg Tab, 25 MG PO for 30 Days, MG 08/12/24 Spironolactone (Spironolactone) 25 Mg Tab, 1 TAB PO DAILY, #90 TAB 1 Refill 08/12/24 Famotidine (Famotidine) 20 Mg Tab, 20 MG PO BID for 30 Days, MG 08/12/24 Information Source: Patient, Emergency Med Personnel Mode of Arrival: EMS Severity: Moderate Timing: Hours Duration: Intermittent Location: Chest (L) Radiation: No Radiation Quality: Sharp, Stabbing Onset: With Light Exertion Cardiac Risk Factors: HTN PE Risk Factors: None Associated Signs and Symptoms: SOB, N/V, Syncope Past Medical History PAST MEDICAL HISTORY: Anxiety, Asthma, CHF, HTN, Seizures Surgical History: Denies all surgeries Family History Family History: Reviewed,noncontributory to illness Social History Smoker: Non-Smoker Alcohol: Denies ETOH Use Drugs: Denies Drug Use Lives In: Home Constitutional: denies: chills, diaphoresis, fatigue, fever, malaise, sweats, weakness, others EENTM: denies: blurred vision, double vision, ear bleeding, ear discharge, ear drainage, ear pain, ear ringing, eye pain, eye redness, hearing loss, mouth pain, mouth swelling, nasal discharge, nose bleeding, nose congestion, nose pain, photophobia, tearing, throat pain, throat swelling, voice changes, others Respiratory: reports: SOB at rest, shortness of breath; denies: cough, hemoptysis, orthopnea, SOB with excertion, stridor, wheezing, others Cardiovascular: reports: chest pain, dizzy spells, syncope; denies: diaphoresis, Dyspnea on exertion, edema, irregular heart beat, left arm pain, lightheadedness, palpitations, PND, others Gastrointestinal: reports: nausea, vomiting; denies: abdomen distended, abdominal pain, blood streaked bowels, constipated, diarrhea, dysphagia, difficulty swallowing, hematemesis, melena, poor appetite, poor fluid intake, rectal bleeding, rectal pain, others Genitourinary: denies: burning, dysuria, flank pain, frequency, hematuria, incontinence, penile discharge, penile sore, pain, testicle pain, testicle swelling, urgency, others Neurological: denies: dizziness, fainting, headache, left sided numbness, left sided weakness, numbness, paresthesia, pre-existing deficit, right sided numbness, right sided weakness, seizure, speech problems, tingling, tremors, weakness, others Musculoskeletal: denies: back pain, gout, joint pain, joint swelling, muscle pain, muscle stiffness, neck pain, others Integumetry: denies: bruises, change in color, change in hair/nails, dryness, laceration, lesions, lumps, rash, wounds, others Allergic/Immunocompromised: denies: Difficulty Healing, Frequent Infections, Hives, Itching, others Hematologic/Lymphatic: denies: anemia, blood clots, easy bleeding, easy bruising, swollen glands, others Endocrine: denies: excessive hunger, excessive sweating, excessive thirst, excessive urination, flushing, intolerance to cold, intolerance to heat, unexplained weight gain, unexplained weight loss, others Psychiatric: denies: anxiety, bipolar disorder, depression, hopeless, panic disorder, schizophrenia, sleepless, suicidal, others Physical Exam General Appearance: No Apparent Distress HEENT: Other (Pupils and face symmetric. Moist mucous membranes.) Neck: Full Range of Motion, Normal Inspection Respiratory: Lungs Clear, No Accessory Muscle Use, No Respiratory Distress, Normal Breath Sounds Cardiovascular: No Edema, No JVD, Regular Rate/Rhythm Breast Exam: Deferred Gastrointestinal: Non Tender, Soft Genitalia: Deferred Pelvic: Deferred Rectal: Deferred Extremities: No calf tenderness, Normal inspection, Normal range of motion, Non-tender, No pedal edema Neurologic: Alert (Oriented x4), Normal Affect, Normal Mood, Other (Ambulatory) Cerebellar Function: NOT DONE Reflexes: NOT DONE Skin: Dry, Normal Color, Warm Lymphatic: NOT DONE EKG EKG : Comments Sinus rhythm, rate 78, normal intervals, normal axis, normal QRS, upsloping ST elevation in leads 2, 3, AVF, V2 through V6 consistent with early repolarization Was a procedure done? Was a procedure done?: No CP Differential Dx Differential Diagnosis: Angina, Anxiety / Panic Attack, GA, Pulmonary Embolus Differential Diagnosis: CHF Differential Diagnosis: Chest Wall Pain, Pericarditis, Pneumonia Comment Asthma, among others X-Ray, Labs, Meds, VS Vital Signs Date Time Temp Pulse Resp B/P (MAP) Pulse Ox O2 Delivery O2 Flow Rate FiO2 09/09/24 20:06 123/66 09/09/24 20:02 78 09/09/24 20:00 80 18 123/66 (85) 98 09/09/24 19:53 13 94 Room Air* 0 09/09/24 19:34 96 Room Air* 0 09/09/24 18:59 85 09/09/24 18:45 Room Air* 0 09/09/24 18:45 98.2 88 18 111/69 (83) 98 98.2 09/09/24 17:40 98.2 88 20 110/47 (68) 97 98.2 Lab Test 09/09/24 19:27 09/09/24 18:45 Range/Units Troponin I High Sensitivity < 3 L < 3 L </=54 ng/L White Blood Count 9.9 4.4-10.8 10^3/uL Red Blood Count 5.11 4.5-5.90 10^6/uL Hemoglobin 15.5 13.5-17.5 g/dL Hematocrit 46.4 41.0-53.0 % Mean Corpuscular Volume 90.7 80.0-100.0 fL Mean Corpuscular Hemoglobin 30.3 28.0-32.0 pg Mean Corpuscular Hemoglobin Concent 33.4 32.0-36.0 g/dL Red Cell Distribution Width 13.2 11.8-14.3 % Platelet Count 240 140-450 10^3/uL Mean Platelet Volume 8.8 6.9-10.8 fL Neutrophils (%) (Auto) 85.2 H 37.0-80.0 % Lymphocytes (%) (Auto) 6.6 L 10.0-50.0 % Monocytes (%) (Auto) 7.5 0.0-12.0 % Eosinophils (%) (Auto) 0.5 0.0-7.0 % Basophils (%) (Auto) 0.2 0.0-2.0 % Neutrophils # (Auto) 8.4 1.6-8.6 10 ^3/uL Lymphocytes # (Auto) 0.7 0.4-5.4 10 ^3/uL Monocytes # (Auto) 0.7 0-1.3 10 ^3/uL Eosinophils # (Auto) 0.1 0-0.8 10 ^3/uL Basophils # (Auto) 0 0-0.2 10 ^3/uL Nucleated Red Blood Cells 0.1 % D-Dimer, Quantitative < 0.19 0.0-0.49 mg/L FEU Sodium Level 141 136-145 mmol/L Potassium Level 4.2 3.5-5.1 mmol/L Chloride Level 105 98-107 mmol/L Carbon Dioxide Level 28 20-31 mmol/L Anion Gap 8 5-15 Blood Urea Nitrogen 15 9-23 mg/dL Creatinine 1.39 H 0.700-1.30 mg/dL Glomerular Filtration Rate Calc 66 >90 mL/min BUN/Creatinine Ratio 10.8 10.0-20.0 Serum Glucose 115 H 74-106 mg/dL Calcium Level 9.7 8.7-10.4 mg/dL B-Type Natriuretic Peptide 0.81 0-100 pg/mL Current Medications Medications (Trade) Dose Ordered Sig/Williams Route Start Time Stop Time Status Last Admin Albuterol (Ventolin Medneb) 5 mg ONCE ONCE NEB 09/09/24 19:30 09/09/24 19:31 DC 09/09/24 19:53 Ipratropium [place] (Atrovent Medneb) 0.5 mg ONCE ONCE NEB 09/09/24 19:30 09/09/24 19:31 DC 09/09/24 19:53 Methylprednisolone Sodium Succinate (Solu Medrol) 125 mg ONCE ONCE IV 09/09/24 19:30 09/09/24 19:31 DC 09/09/24 20:06 Aspirin 325 mg ONCE ONCE PO 09/09/24 19:30 09/09/24 19:31 DC 09/09/24 20:06 Nitroglycerin (Nitro-Bid) 1 pkg ONCE ONCE TD 09/09/24 19:30 09/09/24 19:31 DC 09/09/24 20:06 CHEST RADIOGRAPH Indication: cp Technique: Single frontal view of the chest was obtained Comparison: XY CHEST PORTABLE on DOS: 07/26/23 FINDINGS: Lines and Tubes: None Lungs: No focal consolidation. Pleura: No effusion. No pneumothorax. Cardiomediastinal contours: Unremarkable Bones: No acute osseous abnormality. IMPRESSION: 1. No acute cardiopulmonary disease. X-Ray, Labs, Meds, VS Comment 38-year-old male with a history of anxiety, asthma, CHF, hypertension and seizures brought in by EMS complaining of shortness a breath, near syncope and collapse, and chest pain Vitals unremarkable Exam unremarkable Rhythm strip independently interpreted by me: Sinus rhythm, rate 98, no ectopy. Chest x-ray unremarkable CBC unremarkable, metabolic panel remarkable for creatinine 1.39, BNP normal, troponin negative x2, D-dimer negative Patient treated with the following in the ED: Albuterol 5 mg/Atrovent 0.5 mg nebulized, Solu-Medrol 125 mg IV, aspirin 325 mg p.o., nitro bid 1/2 inch to chest wall On re-evaluation, patient is chest pain-free, states he is not short of breath, and vitals were stable. Plan is to admit the patient for Cardiology evaluation Time of 1ST Reevaluation: 19:29 Reevaluation 1ST: Unchanged Time of 2ND Reevaluation: 21:37 Reevaluation 2ND: Improved Patient Education/Counseling: Diagnosis, Treatment Family Education/Counseling: No Family Present SEPSIS Sepsis Screen Date sepsis recognized/suspect: Sep 09, 2024 Time Sepsis recognized/suspect: 1734 Recent Procedure: No On Antibiotic Therapy: No Respiratory Rate >20: No Heart Rate >90: No Temp<36 C (96.8 F) or >38.3 C: No SBP <90 or MAP <65 mmHG: No New Acute Mental Status Change: No Is the patient on CPAP, BIPAP,: No Physician Orders Electrocardigram (09/09/24 17:39) Chest Portable (09/09/24 18:16) Urinalysis (09/09/24 18:16) Famotidine Injection (Pepcid Injection) (09/10/24 10:00) Hydralazine Injection (Apresoline Inject (09/09/24 20:30) Aspirin Tablet (09/10/24 10:00) Methylprednisolone Sod Succ (Solu Medrol (09/09/24 22:00) Albuterol Medneb (Ventolin Medneb) (09/09/24 20:30) Ipratropium Medneb (Atrovent Medneb) (09/09/24 20:30) Allergies (09/09/24 20:18) Code Status (09/09/24 20:18) Sodium Chloride Lock (Saline Lock Ns) (09/09/24 22:00) Oxygen Per Hour (09/09/24 20:18) Hydrocodone-Acet 5/325mg Tab ([place] 5/32 (09/09/24 20:30) Ondansetron Hcl (Zofran) (09/09/24 20:30) Docusate Sodium Capsule (Colace Capsule) (09/09/24 20:30) Complete Blood Count (09/10/24 04:00) Comprehensive Metabolic Panel (09/10/24 04:00) Cardiac Diet-2gna,Lofat,Lochol (09/10/24 Breakfast) Condition: Serious (09/09/24 20:18) Acetaminophen Tablet (Tylenol Tablet) (09/09/24 20:30) Bedrest With Bathroom Privileg (09/09/24 20:18) Sequential Compression Device (09/09/24 ) Vital Signs Date Time Temp Pulse Resp B/P (MAP) Pulse Ox O2 Delivery O2 Flow Rate FiO2 09/09/24 20:06 123/66 09/09/24 20:02 78 09/09/24 20:00 80 18 123/66 (85) 98 09/09/24 19:53 13 94 Room Air* 0 21 09/09/24 19:34 96 Room Air* 0 21 09/09/24 18:59 85 09/09/24 18:45 Room Air* 0 21 09/09/24 18:45 98.2 88 18 111/69 (83) 98 98.2 09/09/24 17:40 98.2 88 20 110/47 (68) 97 98.2 Laboratory Tests Test 09/09/24 18:45 White Blood Count 9.9 10^3/uL (4.4-10.8) Medications Medications Dose Ordered Sig/Williams Route Start Time Stop Time Status Last Admin Dose Admin Albuterol 5 mg ONCE ONCE NEB 09/09/24 19:30 09/09/24 19:31 DC 09/09/24 19:53 Aspirin 325 mg ONCE ONCE PO 09/09/24 19:30 09/09/24 19:31 DC 09/09/24 20:06 Ipratropium [place] 0.5 mg ONCE ONCE NEB 09/09/24 19:30 09/09/24 19:31 DC 09/09/24 19:53 Methylprednisolone Sodium Succinate 125 mg ONCE ONCE IV 09/09/24 19:30 09/09/24 19:31 DC 09/09/24 20:06 Nitroglycerin 1 pkg ONCE ONCE TD 09/09/24 19:30 09/09/24 19:31 DC 09/09/24 20:06 Departure 1 Departure Time of Disposition: 21:30 Impression: Primary Impression: Chest pain with high risk for cardiac etiology Additional Impressions: Shortness of breath Near syncope Disposition: ADMITTED INPATIENT Admit to: Tele Condition: Guarded Critical Care Note Critical Care Time?: Yes (35 min-critical care time only) Critical care comment: Critical care time including multiple bedside re-evaluations, review of lab and imaging studies and discussion of the case with the admitting provider. Patient is high risk for hemodynamic, neurologic and/or respiratory decompensation. Stability Stability form required: No Heart Score Heart Score: Heart Score Response (Comments) Value History Highly Suspicious 2 EKG Repolarization Disturb 1 Age <45 0 Risk Factors 1 or 2 risk factors 1 Troponin Normal limit 0 Total 4 I personally scribed for SHAILA CRUZ MD ([email or web address]) on 09/09/24 at 19:35. Electronically submitted by Darwin Michel ([email or web address]). SHAILA CRUZ MD Sep 09, 2024 19:35
[2024-09-09] MEDS: IPRATROPIUM BROM 0.5 MG/2.5ML INH SOL NEB ONE (19:53)
[2024-09-09] MEDS: ALBUTEROL SULF 2.5 MG/0.5ML(0.5%) NEB SOLN NEB ONE (19:53)
[2024-09-09 20:00] VITALS: BP 123/66; PULSE 80; RESP 18; O2SAT 98
[2024-09-09] MEDS: methylPREDNISolone SOD SUCC 125 MG/2 ML VL IV ONE (20:06)
[2024-09-09] MEDS: NITROGLYCERIN 2% OINT 1GM PKG TD ONE (20:06)
[2024-09-09] MEDS ORDERED: ONDANSETRON HCL 4 MG/2 ML VIAL IV PRN (20:30)
[2024-09-09] MEDS ORDERED: DOCUSATE SOD 100 MG CAP PO PRN (20:30)
[2024-09-09] MEDS ORDERED: ACETAMINOPHEN 325 MG TAB PO PRN (20:30)
[2024-09-09] MEDS ORDERED: ALBUTEROL SULF 2.5 MG/0.5ML(0.5%) NEB SOLN NEB PRN (20:30)
[2024-09-09] MEDS ORDERED: IPRATROPIUM BROM 0.5 MG/2.5ML INH SOL NEB PRN (20:30)
[2024-09-09] MEDS: SODIUM CHLOR 0.9% PF (SALINE LOCK) 10ML VIAL/SYR IV SCH (22:05)
[2024-09-09] MEDS: methylPREDNISolone SOD SUCC 40 MG/ML VL IV SCH (22:07)
--- NOTE | 2024-09-09 22:26 | DVHHP2 ---
History of Present Illness Reason for Visit: Chest pain with high risk for cardiac etiology History of Present Illness The patient is a 38-year-old male with past medical history of asthma, anxiety, CHF, hypertension, seizures who presented to [facility] ED with complaint of chest pain. Patient reports he has been experiencing retrosternal chest pain, sharp in nature nonradiating, associated with shortness of breaths, dizzy spells, nausea, vomiting, getting worse that prompted this visit. Patient was seen and evaluated in the ED, laboratory data shows WBC 9.9, platelets 240, sodium 141, potassium 4.2, BUN 15, creatinine 1.39, glucose 115, calcium 9.7, troponin 3, BNP 0.81, blood pressure 123/66, heart rate 78, temperature 98.2 F, O2 saturation 96% on room air. Chest x-ray shows no acute cardiopulmonary disease. Patient was given aspirin 325 mg p.o. x1, please see medication orders section in the computer. On my assessment, patient denied chest pain at this moment, no headache, no dizziness, no diaphoresis, no shortness of breaths, no nausea, no vomiting, no fever, no chills. Patient was admitted for further evaluation and medical management. Past Medical History Anxiety, Asthma, CHF, HTN, Seizures Past Surgical History Denies all surgeries Family History Reviewed, noncontributory to the management of this case. Past Social History The patient lives at home, denies smoking, alcohol or illicit drugs abuse. Review of Systems Constitutional: No: Fever, Chills, Sweats, Weakness, Malaise, Other Eyes: No: Pain, Vision change, Conjunctivae inflammation, Eyelid inflammation, Other, Redness ENT: No: Ear pain, Ear discharge, Nose pain, Nose discharge, Nose congestion, Mouth pain, Mouth swelling, Throat pain, Throat swelling, Other Respiratory: Shortness of breath, SOB with excertion, Other (SOB at rest); No: Cough, Dry, Wheezing, Hemoptysis, Pleuritic Pain, Sputum, Wheezing Cardiovascular: Chest Pain, Other (Dizzy spells, syncope.); No: Palpitations, Orthopnea, Paroxysmal Noc. Dyspnea, Edema, Lt Headedness Gastrointestinal: No: Nausea, Vomiting, Abdominal Pain, Diarrhea, Constipation, Melena, Hematochezia, Other Genitourinary: No Dysuria, No Frequency, No Incontinence, No Hematuria, No Retention, No Other Musculoskeletal: No: other, neck pain, shoulder pain, arm pain, back pain, hand pain, leg pain, foot pain Skin: No: Rash, Lesions, Jaundice, Bruising, Other Neurological: No: Weakness, Numbness, Incoordination, Change in speech, Confusion, Seizures, Other Allergies: Coded Allergies: Penicillins (Verified Allergy, Severe, 08/12/24) Amlodipine (Verified Allergy, Unknown, 08/12/24) Clonidine (Verified Allergy, Unknown, 08/12/24) Phenytoin (Verified Allergy, Unknown, 02/09/21) Lisinopril (Verified Adverse Reaction, Unknown, Lips swelling, 08/12/24) Medications Current Medications Medications Dose Ordered Sig/Williams Route Start Time Stop Time Status Last Admin Dose Admin Famotidine 20 mg DAILY IV 09/10/24 10:00 Hydralazine HCl 10 mg Q6HP PRN IV 09/09/24 20:30 Aspirin 81 mg DAILY PO 09/10/24 10:00 Methylprednisolone Sodium Succinate 40 mg BID IV 09/09/24 22:00 09/09/24 22:07 40 MG Albuterol 2.5 mg Q4HPRN PRN NEB 09/09/24 20:30 Ipratropium [place] 0.5 mg Q4HPRN PRN NEB 09/09/24 20:30 Sodium Chloride 10 ml Q8HR IV 09/09/24 22:00 09/09/24 22:05 10 ML Acetaminophen/ Hydrocodone Bitart 1 tab Q4HP PRN PO 09/09/24 20:30 Ondansetron HCl 4 mg Q4HP PRN IV 09/09/24 20:30 Docusate Sodium 100 mg BIDPRN PRN PO 09/09/24 20:30 Acetaminophen 650 mg Q6HP PRN PO 09/09/24 20:30 Exam Vital Signs Vital Signs Date Time Temp Pulse Resp B/P (MAP) Pulse Ox O2 Delivery O2 Flow Rate FiO2 09/09/24 20:06 123/66 09/09/24 20:02 78 09/09/24 20:00 18 98 09/09/24 19:53 Room Air* 0 21 09/09/24 18:45 98.2 98.2 General Appearance: Alert, Oriented X3, Cooperative, No acute distress HEENT: Atraumatic, PERRLA, EOMI, Mucous membr. moist/pink Respiratory: Normal air movement Cardiovascular: Regular rate, Normal S1, Normal S2, No murmurs Abdominal: Normal bowel sounds, Soft, No tenderness, No hepatospenomegaly, No masses Extremities: No clubbing, No cyanosis, No edema, Normal pulses, No tenderness/swelling Skin: No rashes, No breakdown, No significant lesion Neuro: Normal gait, Normal speech, Strength at 5/5 X4 ext, Normal tone, Sensation intact, Cranial nerves 3-12 NL, Reflexes 2+ Psych/Mental Status: Mental status NL, Mood NL Labs/Xrays Labs Test 09/09/24 19:27 09/09/24 18:45 Range/Units Troponin I High Sensitivity < 3 L </=54 ng/L White Blood Count 9.9 4.4-10.8 10^3/uL Red Blood Count 5.11 4.5-5.90 10^6/uL Hemoglobin 15.5 13.5-17.5 g/dL Hematocrit 46.4 41.0-53.0 % Mean Corpuscular Volume 90.7 80.0-100.0 fL Mean Corpuscular Hemoglobin 30.3 28.0-32.0 pg Mean Corpuscular Hemoglobin Concent 33.4 32.0-36.0 g/dL Red Cell Distribution Width 13.2 11.8-14.3 % Platelet Count 240 140-450 10^3/uL Mean Platelet Volume 8.8 6.9-10.8 fL Neutrophils (%) (Auto) 85.2 H 37.0-80.0 % Lymphocytes (%) (Auto) 6.6 L 10.0-50.0 % Monocytes (%) (Auto) 7.5 0.0-12.0 % Eosinophils (%) (Auto) 0.5 0.0-7.0 % Basophils (%) (Auto) 0.2 0.0-2.0 % Neutrophils # (Auto) 8.4 1.6-8.6 10 ^3/uL Lymphocytes # (Auto) 0.7 0.4-5.4 10 ^3/uL Monocytes # (Auto) 0.7 0-1.3 10 ^3/uL Eosinophils # (Auto) 0.1 0-0.8 10 ^3/uL Basophils # (Auto) 0 0-0.2 10 ^3/uL Nucleated Red Blood Cells 0.1 % D-Dimer, Quantitative < 0.19 0.0-0.49 mg/L FEU Sodium Level 141 136-145 mmol/L Potassium Level 4.2 3.5-5.1 mmol/L Chloride Level 105 98-107 mmol/L Carbon Dioxide Level 28 20-31 mmol/L Anion Gap 8 5-15 Blood Urea Nitrogen 15 9-23 mg/dL Creatinine 1.39 H 0.700-1.30 mg/dL Glomerular Filtration Rate Calc 66 >90 mL/min BUN/Creatinine Ratio 10.8 10.0-20.0 Serum Glucose 115 H 74-106 mg/dL Calcium Level 9.7 8.7-10.4 mg/dL B-Type Natriuretic Peptide 0.81 0-100 pg/mL PATIENT: GIBSON FUENTES ACCT: [id number] UNIT: [id number] : 1985 LOC: ER ROOM / BED: / AGE / SEX: 38 / M ADM STATUS: REG ER SERVICE 15 ORDERING PHYSICIAN: SHAILA CRUZ MD PROCEDURE(s): CXRP - CHEST PORTABLE REASON: cp ORDER NUMBER(s): [id number], ACCESSION NUMBER(s): [id number] CHEST RADIOGRAPH Indication: cp Technique: Single frontal view of the chest was obtained Comparison: XY CHEST PORTABLE on DOS: 07/26/23 FINDINGS: Lines and Tubes: None Lungs: No focal consolidation. Pleura: No effusion. No pneumothorax. Cardiomediastinal contours: Unremarkable Bones: No acute osseous abnormality. IMPRESSION: 1. No acute cardiopulmonary disease. SEPSIS Sepsis Screen Date sepsis recognized/suspect: Sep 09, 2024 Time Sepsis recognized/suspect: 1932 Recent Procedure: No On Antibiotic Therapy: No Respiratory Rate >20: No Heart Rate >90: No Temp<36 C (96.8 F) or >38.3 C: No SBP <90 or MAP <65 mmHG: No New Acute Mental Status Change: No Is the patient on CPAP, BIPAP,: No Physician Orders Electrocardigram (09/09/24 17:39) Chest Portable (09/09/24 18:16) Urinalysis (09/09/24 18:16) Famotidine Injection (Pepcid Injection) (09/10/24 10:00) Hydralazine Injection (Apresoline Inject (09/09/24 20:30) Aspirin Tablet (09/10/24 10:00) Methylprednisolone Sod Succ (Solu Medrol (09/09/24 22:00) Albuterol Medneb (Ventolin Medneb) (09/09/24 20:30) Ipratropium Medneb (Atrovent Medneb) (09/09/24 20:30) Allergies (09/09/24 20:18) Code Status (09/09/24 20:18) Sodium Chloride Lock (Saline Lock Ns) (09/09/24 22:00) Oxygen Per Hour (09/09/24 20:18) Hydrocodone-Acet 5/325mg Tab ([place] 32 (09/09/24 20:30) Ondansetron Hcl (Zofran) (09/09/24 20:30) Docusate Sodium Capsule (Colace Capsule) (09/09/24 20:30) Complete Blood Count (09/10/24 04:00) Comprehensive Metabolic Panel (09/10/24 04:00) Cardiac Diet-2gna,Lofat,Lochol (09/10/24 Breakfast) Condition: Serious (09/09/24 20:18) Acetaminophen Tablet (Tylenol Tablet) (09/09/24 20:30) Bedrest With Bathroom Privileg (09/09/24 20:18) Sequential Compression Device (09/09/24 ) Vital Signs Date Time Temp Pulse Resp B/P (MAP) Pulse Ox O2 Delivery O2 Flow Rate FiO2 09/09/24 20:06 123/66 09/09/24 20:02 78 09/09/24 20:00 80 18 123/66 (85) 98 09/09/24 19:53 13 94 Room Air* 0 21 09/09/24 19:34 96 Room Air* 0 21 09/09/24 18:59 85 09/09/24 18:45 Room Air* 0 21 09/09/24 18:45 98.2 88 18 111/69 (83) 98 98.2 09/09/24 17:40 98.2 88 20 110/47 (68) 97 98.2 Laboratory Tests Test 09/09/24 18:45 White Blood Count 9.9 10^3/uL (4.4-10.8) Medications Medications Dose Ordered Sig/Williams Route Start Time Stop Time Status Last Admin Dose Admin Albuterol 5 mg ONCE ONCE NEB 09/09/24 19:30 09/09/24 19:31 DC 09/09/24 19:53 5 MG Aspirin 325 mg ONCE ONCE PO 09/09/24 19:30 09/09/24 19:31 DC 09/09/24 20:06 325 MG Ipratropium [place] 0.5 mg ONCE ONCE NEB 09/09/24 19:30 09/09/24 19:31 DC 09/09/24 19:53 0.5 MG Methylprednisolone Sodium Succinate 40 mg BID IV 09/09/24 22:00 09/09/24 22:07 40 MG Methylprednisolone Sodium Succinate 125 mg ONCE ONCE IV 09/09/24 19:30 09/09/24 19:31 DC 09/09/24 20:06 125 MG Nitroglycerin 1 pkg ONCE ONCE TD 09/09/24 19:30 09/09/24 19:31 DC 09/09/24 20:06 1 PKG Sodium Chloride 10 ml Q8HR IV 09/09/24 22:00 09/09/24 22:05 10 ML Assessment/Plan Assessment/Plan Chest pain with high risk for cardiac etiology Near syncope Acute renal injury Acute respiratory distress Plan 1. Admit to telemetry unit 2. Breathing treatment 3. Pain control management 4. Management of fluids and electrolytes 5. Consultation for hospitalist 6. Diagnostic tests chest x-ray 7. DVT prophylaxis-on aspirin 8. Repeat labs CBC, CMP in a.m. 9. Continue with current medical management 10. Treatment plan discussed with patient and RN. Patient verbalized understanding. Plan discussed with: Patient, Other (RN) My Orders Orders - NARCISO HOPKINS DNP Procedure Category Date Status Time Famotidine Injection PHA 09/10/24 In Process (Pepcid Injection) 10:00 Hydralazine Injection PHA 09/09/24 In Process (Apresoline Inject 20:30 Aspirin Tablet PHA 09/10/24 In Process 10:00 Methylprednisolone PHA 09/09/24 In Process Sod Succ (Solu Medrol 22:00 Albuterol Medneb PHA 09/09/24 In Process (Ventolin Medneb) 20:30 Ipratropium Medneb PHA 09/09/24 In Process (Atrovent Medneb) 20:30 Allergies JOSE 09/09/24 In Process 20:18 Code Status CODE 09/09/24 Transmitted 20:18 Sodium Chloride Lock PHA 09/09/24 In Process (Saline Lock Ns) 22:00 Oxygen Per Hour RT 09/09/24 Transmitted 20:18 Hydrocodone-Acet PHA 09/09/24 In Process 5/325mg Tab ([place] 20:30 Ondansetron Hcl PHA 09/09/24 In Process (Zofran) 20:30 Docusate Sodium PHA 09/09/24 In Process Capsule (Colace 20:30 Complete Blood Count LAB 09/10/24 Verified 04:00 Comprehensive LAB 09/10/24 Verified Metabolic Panel 04:00 Cardiac DIET 09/10/24 Transmitted Diet-2gna,Lofat,Lochol Breakfast Condition: Serious JOSE 09/09/24 In Process 20:18 Acetaminophen Tablet PHA 09/09/24 In Process (Tylenol Tablet) 20:30 Bedrest With Bathroom JOSE 09/09/24 In Process Privileg 20:18 Sequential JOSE 09/09/24 In Process Compression Device Problem List: (1) Chest pain with high risk for cardiac etiology (2) Near syncope (3) Acute renal injury (4) Acute respiratory distress Date of Service: Sep 09, 2024 Billing Provider: NARCISO HOPKINS DNP Common Visit Codes: [id number] INP/OBS CARE (HIGH) NARCISO HOPKINS DNP Sep 09, 2024 22:26
[2024-09-09] MEDS ORDERED: NITROGLYCERIN 0.4 MG SL TAB SL PRN (22:30)
[2024-09-10] VITALS (11 sets, daily range): BP systolic 109–136; BP diastolic 68–89; PULSE 79–101; RESP 13–18; TEMP 97.2–99.3; O2SAT 94–98
[2024-09-10 05:52] LABS: Hematocrit 44.8 % (41.0-53.0); Hemoglobin 14.9 g/dL (13.5-17.5); Mean Corpuscular Hemoglobin 30.0 pg (28.0-32.0); Mean Corpuscular Volume 90.6 fL (80.0-100.0); Nucleated Red Blood Cells % 0.1 %
[2024-09-10 06:13] LABS: Alanine Aminotransferase 24 U/L (7-40); Albumin 4.4 g/dL (3.2-4.8); Alkaline Phosphatase 63 U/L (46-116); Anion Gap 9 (5-15); BUN/Creatinine Ratio 11.0 (10.0-20.0); Bilirubin, Total 0.9 mg/dL (0.2-1.0); Blood Urea Nitrogen 14 mg/dL (9-23); Calcium 9.9 mg/dL (8.7-10.4); Carbon Dioxide 23 mmol/L (20-31); Chloride 105 mmol/L (98-107); Glucose 196 mg/dL (74-106); Potassium 4.1 mmol/L (3.5-5.1); Sodium 137 mmol/L (136-145); Total Protein 7.2 g/dL (5.7-8.2)
[2024-09-10] MEDS: FAMOTIDINE (10MG/ML) 2ML VL IV SCH (10:05)
[2024-09-10 12:48] LABS: Urine Protein, UAD Negative (Negative)
[2024-09-10] MEDS: MORPHINE SULFATE INJ 2 MG/ml SYRG IV PRN (14:50)
--- NOTE | 2024-09-10 16:08 | DVHPN2 ---
Subjective Continues to report having shortness of breath with ambulation. Reports chest pain to be sharp with transitioning pain to his back. Reviewed: Care Plan, H&P, Medications Changes from previous H/P or p: No Changes General: Per HPI Eyes: No Pain, No Vision change, No Conjunctivae inflammation, No Eyelid inflammation, No Other, No Redness ENT: No Ear pain, No Ear discharge, No Nose pain, No Nose discharge, No Nose congestion, No Mouth pain, No Mouth swelling, No Throat pain, No Throat swelling, No Other Cardiovascular: Chest Pain; No Palpitations, No Orthopnea, No Paroxysmal Noc. Dyspnea, No Edema, No Lt Headedness; Other (Dizzy spells, syncope.) Respiratory: No Cough, No Dry; Shortness of breath, SOB with excertion; No Wheezing, No Hemoptysis, No Pleuritic Pain, No Sputum; Other (SOB at rest) Gastrointestinal: No Nausea, No Vomiting, No Abdominal Pain, No Diarrhea, No Constipation, No Melena, No Hematochezia, No Other Genitourinary: No Dysuria, No Frequency, No Incontinence, No Hematuria, No Retention, No Other Musculoskeletal: No other, No neck pain, No shoulder pain, No arm pain, No back pain, No hand pain, No leg pain, No foot pain Skin: No Rash, No Lesions, No Jaundice, No Bruising, No Other Objective Vitals Vital Signs Date Time Temp Pulse Resp B/P (MAP) Pulse Ox O2 Delivery O2 Flow Rate FiO2 09/10/24 14:50 84 20 125/76 09/10/24 12:44 98.0 94 98.0 09/10/24 10:10 Room Air* 0 21 General Appearance: Alert, Oriented X3, Cooperative, No acute distress HEENT: Atraumatic, PERRLA Cardiovascular: Normal S1, Normal S2 Abdomen: Normal bowel sounds, Soft, No tenderness, No hepatospenomegaly Musculoskeletal: Normal sensory function, Normal motor function Neuro: Normal gait, Normal speech Skin: Dry, Intact Psych/Mental Status: Mental status NL, Mood NL Medications Current Medications Medications Dose Ordered Sig/Williams Route Start Time Stop Time Status Last Admin Dose Admin Famotidine 20 mg DAILY IV 09/10/24 10:00 09/10/24 10:05 20 MG Hydralazine HCl 10 mg Q6HP PRN IV 09/09/24 20:30 Aspirin 81 mg DAILY PO 09/10/24 10:00 09/10/24 10:04 81 MG Albuterol 2.5 mg Q4HPRN PRN NEB 09/09/24 20:30 Ipratropium [place] 0.5 mg Q4HPRN PRN NEB 09/09/24 20:30 Sodium Chloride 10 ml Q8HR IV 09/09/24 22:00 09/10/24 12:53 10 ML Acetaminophen/ Hydrocodone Bitart 1 tab Q4HP PRN PO 09/09/24 20:30 Ondansetron HCl 4 mg Q4HP PRN IV 09/09/24 20:30 Docusate Sodium 100 mg BIDPRN PRN PO 09/09/24 20:30 Acetaminophen 650 mg Q6HP PRN PO 09/09/24 20:30 Nitroglycerin 0.4 mg Q5MINP PRN SL 09/09/24 22:30 Morphine Sulfate 2 mg Q30M PRN IV 09/09/24 22:30 09/10/24 14:50 2 MG Laboratory Results Laboratory Tests 09/10/24 05:30 Chemistry Test 09/09/24 18:45 09/10/24 05:30 Calcium Level 9.7 mg/dL (8.7-10.4) 9.9 mg/dL (8.7-10.4) Albumin 4.4 g/dL (3.2-4.8) Total Protein 7.2 g/dL (5.7-8.2) Coagulation Test 09/09/24 18:45 D-Dimer, Quantitative < 0.19 mg/L FEU (0.0-0.49) Cardiac Markers Test 09/09/24 18:45 B-Type Natriuretic Peptide 0.81 pg/mL (0-100) LFT Test 09/10/24 05:30 Alanine Aminotransferase (ALT) 24 U/L (7-40) Alkaline Phosphatase 63 U/L (46-116) Aspartate Amino Transferase (AST) 21 U/L (13-40) Total Bilirubin 0.9 mg/dL (0.2-1.0) Urinalysis Test 09/10/24 12:00 Urine Color Yellow (Yellow) Urine Clarity Clear (Clear) Urine pH 6.0 (5.0-9.0) Urine Specific [place] 1.028 (1.001-1.035) Urine Protein Negative (Negative) Urine Ketones Trace (Negative) Urine Blood Negative /uL (Negative) Urine Nitrite Negative (Negative) Urine Bilirubin Negative (Negative) Urine Urobilinogen Normal mg/dL (Negative) Urine Leukocyte Esterase Negative /uL (Negative) Urine RBC 6 /hpf (0 - 3) Urine Microscopic WBC 2 /HPF (0-3) Urine Squamous Epithelial Cells Few /hpf (<5) Urine Bacteria None seen /hpf (None Seen) Urine Hyaline Casts Few /lpf (0 - 2) Urine Mucus Few (None Seen) Urine Glucose Normal mg/dL (Normal) Labs and/or images reviewed: Labs reviewed by me, Image(s) reviewed by me Assessment/Plan Assessment/Plan Impression: -chest pain, secondary to pericarditis -pericarditis -accelerated hypertension -obesity -asthma Plan: -chart reviewed from recent admission one month ago. Echocardiogram 50%. Troponins are negative x2 on this admission. Twelve lead ECG reveals ST elevations, nonspecific, representing pericarditis. -IV Toradol followed by indomethacin 50 mg p.o. t.i.d. -continue antihypertensives -ambulate patient and monitor O2 saturation and heart rate -reassess for discharge in a.m. Total time spent with patient discussing and formulating plan of care: 35 minutes. This medical document was created using an electronic medical record system with [employer] dictation system. Although this document has been carefully reviewed, there may still be some phonetic and typographical errors. These areas are purely typographical due to imperfections of the software programs, and do not reflect any compromise in the patient's medical care. Plan discussed with: Patient, Other (RN) My Orders Orders - RHIANNON ZAPATA NP Procedure Category Date Status Time Erythrocyte LAB 09/10/24 Logged Sedimentation Rate 16:02 C-Reactive Protein LAB 09/10/24 Logged 16:02 Date of Service: Sep 10, 2024 Billing Provider: RHIANNON ZAPATA NP Common Visit Codes: [id number] INP/OBS CARE(HIGH) RHIANNON ZAPATA NP Sep 10, 2024 16:08
[2024-09-10] MEDS: KETOROLAC TROMETH 30 MG/ML 1ML VIAL IV ONE (16:50)
[2024-09-10] MEDS: INDOMETHACIN 25 MG CAP PO SCH (22:09)
[2024-09-11] VITALS (8 sets, daily range): BP systolic 125–160; BP diastolic 85–95; PULSE 64–82; RESP 14–18; TEMP 97.5–98.7; O2SAT 94–99
[2024-09-11] MEDS: HYDROcodone-ACET 5/325MG TAB PO PRN (09:13)
[2024-09-11] MEDS: hydrALAZINE HCL 20 MG/ML VL IV PRN (09:14)
[2024-09-11] MEDS ORDERED: COLC1CAP PO (14:47)
--- NOTE | 2024-09-11 15:26 | DVHDS2 ---
Discharge Summary Date of Admission Sep 09, 2024 at 22:25 Date of Discharge: Sep 11, 2024 Admitting Diagnosis Chest pain Labs/Diagnostic Data: Laboratory Results Test 09/10/24 12:00 09/10/24 05:30 09/09/24 19:27 09/09/24 18:45 Urine Color Yellow (Yellow) Urine Clarity Clear (Clear) Urine pH 6.0 (5.0-9.0) Urine Specific [place] 1.028 (1.001-1.035) Urine Protein Negative (Negative) Urine Ketones Trace (Negative) Urine Blood Negative /uL (Negative) Urine Nitrite Negative (Negative) Urine Bilirubin Negative (Negative) Urine Urobilinogen Normal mg/dL (Negative) Urine Leukocyte Esterase Negative /uL (Negative) Urine RBC 6 /hpf (0 - 3) Urine Microscopic WBC 2 /HPF (0-3) Urine Squamous Epithelial Cells Few /hpf (<5) Urine Bacteria None seen /hpf (None Seen) Urine Hyaline Casts Few /lpf (0 - 2) Urine Mucus Few (None Seen) Urine Glucose Normal mg/dL (Normal) White Blood Count 8.2 10^3/uL (4.4-10.8) Red Blood Count 4.95 10^6/uL (4.5-5.90) Hemoglobin 14.9 g/dL (13.5-17.5) Hematocrit 44.8 % (41.0-53.0) Mean Corpuscular Volume 90.6 fL (80.0-100.0) Mean Corpuscular Hemoglobin 30.0 pg (28.0-32.0) Mean Corpuscular Hemoglobin Concent 33.2 g/dL (32.0-36.0) Red Cell Distribution Width 13.2 % (11.8-14.3) Platelet Count 236 10^3/uL (140-450) Mean Platelet Volume 9.0 fL (6.9-10.8) Neutrophils (%) (Auto) 91.1 % (37.0-80.0) Lymphocytes (%) (Auto) 8.1 % (10.0-50.0) Monocytes (%) (Auto) 0.7 % (0.0-12.0) Eosinophils (%) (Auto) 0.0 % (0.0-7.0) Basophils (%) (Auto) 0.1 % (0.0-2.0) Neutrophils # (Auto) 7.5 10 ^3/uL (1.6-8.6) Lymphocytes # (Auto) 0.7 10 ^3/uL (0.4-5.4) Monocytes # (Auto) 0.1 10 ^3/uL (0-1.3) Eosinophils # (Auto) 0 10 ^3/uL (0-0.8) Basophils # (Auto) 0 10 ^3/uL (0-0.2) Nucleated Red Blood Cells 0.1 % Erythrocyte Sedimentation Rate 2 mm/hr (0-20) Sodium Level 137 mmol/L (136-145) Potassium Level 4.1 mmol/L (3.5-5.1) Chloride Level 105 mmol/L (98-107) Carbon Dioxide Level 23 mmol/L (20-31) Anion Gap 9 (5-15) Blood Urea Nitrogen 14 mg/dL (9-23) Creatinine 1.27 mg/dL (0.700-1.30) Glomerular Filtration Rate Calc 74 mL/min (>90) BUN/Creatinine Ratio 11.0 (10.0-20.0) Serum Glucose 196 mg/dL (74-106) Calcium Level 9.9 mg/dL (8.7-10.4) Total Bilirubin 0.9 mg/dL (0.2-1.0) Aspartate Amino Transferase (AST) 21 U/L (13-40) Alanine Aminotransferase (ALT) 24 U/L (7-40) Alkaline Phosphatase 63 U/L (46-116) C-Reactive Protein High Sensitivity 0.72 mg/dL (<1.0) Total Protein 7.2 g/dL (5.7-8.2) Albumin 4.4 g/dL (3.2-4.8) Troponin I High Sensitivity < 3 ng/L (</=54) D-Dimer, Quantitative < 0.19 mg/L FEU (0.0-0.49) B-Type Natriuretic Peptide 0.81 pg/mL (0-100) Other Laboratory Tests 09/10/24 05:30 Brief Hx & Hospital Course: History of Present Illness The patient is a 38-year-old male with past medical history of asthma, anxiety, CHF, hypertension, seizures who presented to [facility] ED with complaint of chest pain. Patient reports he has been experiencing retrosternal chest pain, sharp in nature nonradiating, associated with shortness of breaths, dizzy spells, nausea, vomiting, getting worse that prompted this visit. Patient was seen and evaluated in the ED, laboratory data shows WBC 9.9, platelets 240, sodium 141, potassium 4.2, BUN 15, creatinine 1.39, glucose 115, calcium 9.7, troponin 3, BNP 0.81, blood pressure 123/66, heart rate 78, temperature 98.2 F, O2 saturation 96% on room air. Chest x-ray shows no acute cardiopulmonary disease. Patient was given aspirin 325 mg p.o. x1, please see medication orders section in the computer. On my assessment, patient denied chest pain at this moment, no headache, no dizziness, no diaphoresis, no shortness of breaths, no nausea, no vomiting, no fever, no chills. Patient was admitted for further evaluation and medical management. Course of hospitalization: Review of the patient's medical records revealed that the patient was here approximately one month ago with similar complaints. Patient had echocardiogram which was normal. Reviewing patient's 12 lead ECG reveals that he has nonspecific concave ST elevations noted throughout precordial and inferior leads. Troponins has been negative. Patient reports pain as being sharp, retrosternal going to his back. And on occasion going to his shoulder and arm. Patient has a cardiac clearance on previous admission. Symptoms have resolved after starting anti-inflammatories. Patient will be continued on colchicine 0.6 mg p.o. twice a day for three months. He is instructed to follow up with his PCP in 1-2 weeks. All questions answered. Physical examination General: Alert and Oriented x3. No acute distress. Well-nourished. Obese Eyes: EOMI. Anicteric. HENT: Moist mucous membranes. Lungs: Clear to auscultation bilaterally. No accessory muscle use. Cardiovascular: Regular rate and rhythm. No murmur. No JVD. Abdomen: Soft, non-tender and non-distended. No palpable masses. Extremities: No edema. Non-tender. Skin: No rashes or lesions. Warm. Neurologic: No focal neurological deficits. CN II-XII grossly intact, but not individually tested. Psychiatric: Cooperative. Appropriate mood and affect. Total time spent with patient discussing and formulating plan of care: 35 minutes. This medical document was created using an electronic medical record system with [employer] dictation system. Although this document has been carefully reviewed, there may still be some phonetic and typographical errors. These areas are purely typographical due to imperfections of the software programs, and do not reflect any compromise in the patient's medical care. Condition at Discharge: Fair Final Diagnosis/Problems List Chest secondary to Pericarditis Secondary diagnosis: -chest pain, secondary to pericarditis -pericarditis -accelerated hypertension -obesity -asthma Discharge Disposition: Home Discharge Instruct/Medications Diet: Cardiac 2g Na,low cholest Activity: No Restrictions, As Tolerated Follow Up/Referral: PCP in 1-2 weeks Medications: Colchicine 0.6mg po bid x 3 months Scheduled Acetaminophen (Tylenol), 325 MG PO TID Calcium Carbonate (Antacid) (Maalox), 600 MG PO TID Colchicine (Colchicine), 0.6 MG PO BID Famotidine (Famotidine), 20 MG PO BID, (Reported) Lisinopril (Lisinopril), 1 TAB PO DAILY Pantoprazole Sodium Sesquihydr (Pantoprazole Sodium), 40 MG PO DAILY Spironolactone (Spironolactone), 1 TAB PO DAILY, (Reported) Miscellaneous Medications Budesonide-Formoterol Fumarate ([place]yna 80-4.5 Mcg/Act), 1 AER IN, (Reported) Hydralazine Hcl (Hydralazine Hcl), 25 MG PO, (Reported) 36 Discharge Statement: "Patient was advised to return to the ER or call 911 if any headaches, dizziness, shortness of breath, chest pain, abdominal pain, bleeding, fevers, or worsening of medical condition. Patient was counseled about treatment plan, medications, possible side effects, patientverbalized understanding. All questions were answered to the best of my ability. This discharge took greater then 30 minutes in planning, reviewing documentation, counseling the patient, and discussing with other team members." ASSESSMENT ASSESSMENT Assessment Chest secondary to Pericarditis Date of Service: Sep 11, 2024 Billing Provider: RHIANNON ZAPATA NP Common Visit Codes: [id number] INP/OBS CARE(HIGH) RHIANNON ZAPATA NP Sep 11, 2024 15:26
--- NOTE | 2024-09-12 04:32 | ECG ---
[facility] Test Date: 2024-09-09 Test Time: 18:59:38 Pat Name: GIBSON FUENTES Department: ED Room: 0293T B Gender: M [employer]: [employer] : 1985 Requested By: DEANDRA OBRIEN Order Number: [id number] Reading MD: Lukas Peralta Measurements Intervals [place] Rate: 85 P: 66 PA: 162 QRS: 65 QRSD: 87 T: 76 QT: 368 QTc: 438 Interpretive Statements Sinus rhythm ST elev, probable normal early repol pattern Baseline wander in lead(s) I,II,aVR,aVL Electronically Signed On 09-12-2024 18:44:46 PDT by Lukas Peralta Please click the below link to view image of tracing.
== END 2024-09-11 18:22 | disposition home or self-care (01) | DRG 315 ==
LOC: EDBD 17:33 → ER 17:33 → OVERFLOW 22:25 → TELE-WESTW 09-10 17:49
PROVIDERS: ADMIT Nurse Practitioner Family; ATTEND Nurse Practitioner Family
DX: I31.9 Disease of pericardium, unspecified (principal); N17.9 Acute kidney failure, unspecified; E66.9 Obesity, unspecified; J45.909 Unspecified asthma, uncomplicated; Z68.32 Body mass index [BMI] 32.0-32.9, adult; I50.9 Heart failure, unspecified; I11.0 Hypertensive heart disease with heart failure; F41.9 Anxiety disorder, unspecified; Z88.0 Allergy status to penicillin; Z88.8 Allergy status to other drugs, medicaments and biological substances
CPT/HCPCS: 36415; 71045; 80048; 80053; 81001; 83880; 84484; 85025; 85379; 85652; 86141; 87081; 93005; 94640; 96374; 99291; G0378; J1885; J3490